=== PATIENT | female | born 1955 | race Caucasian/White ===

== ENCOUNTER → 2018-09-30 | Outpatient (CLI) | payer BC, OTHER ==
--- NOTE | 2018-09-30 15:16 | 2DMMODE ---
[facility] [place] [employer] [place] [address] 2 D/M-MODE ECHOCARDIOGRAM Name: CAROLINA FARLEY Room #: REG [facility]#: [id number] ������������� Admission: 09/30/18 ������������� Attend Phys: Federico Anderson MD Discharge: ��� ������������� ��� Date of : 57 Date of Service: 09/30/18 1515 �� Report #: [id number] �������� ��������������������������������������������[id number] THIS REPORT FOR: //name// APPROVED REPORT Study performed: 09/30/2018 14:21:04 EXAM: Comprehensive 2D, Doppler, and color-flow Echocardiogram Patient Location: Out-Patient Room #: Echo lab 2 Status: routine BSA: 1.97 HR: 58 bpm BP: 138/82 mmHg Rhythm: Bradycardia Other Information Study Quality: Good Indications Diabetes Dyspnea Chest Pain 2D Dimensions RVDd: 38.79 mm IVSd: 10.26 (7-11mm) LVOT Diam: 19.11 (18-24mm) LVDd: 47.00 mm PWd: 10.93 (7-11mm) Ascending Ao: 26.39 (22-36mm) LVDs: 32.34 (25-40mm) Aortic Root: 26.01 mm IVC: 14.00 mm Volumes Left Atrial Volume (Systole) Single Plane 4CH: 59.70 mL Single Plane 2CH: 40.86 mL LA ESV Index: 29.00 mL/m2 Aortic Valve AoV Peak Angelo.: 1.23 m/s AO Peak Gr.: 6.09 mmHg LVOT Max P.90 mmHg LVOT Max V: 1.11 m/s MARY JO Vmax: 2.58 cm2 Mitral Valve E/A Ratio: 1.2 [facility] [address] [place] [address] 2 D/M-MODE ECHOCARDIOGRAM Name: CAROLINA FARLEY Room #: REG [facility]#: [id number] ������������� Admission: 09/30/18 ������������� Attend Phys: Federico Anderson MD Discharge: ��� ������������� ��� Date of : 57 Date of Service: 09/30/18 1515 �� Report #: [id number] �������� ��������������������������������������������[id number] MV Decel. Time: 220.60 ms MV E Max Angelo.: 1.08 m/s MV A Angelo.: 0.90 m/s MV PHT: 63.97 ms IVRT: 115.34 ms Pulmonary Valve PV Peak Angelo.: 1.04 m/s PV Peak Gr.: 4.33 mmHg Pulmonary Vein P Vein S: 0.56 m/s P Vein A: 0.35 m/s P Vein D: 0.38 m/s P Vein A Dur.: 110.7 msec P Vein S/D Ratio: 1.47 Tricuspid Valve TR Peak Angelo.: 2.32 m/s TR Peak Gr.: 21.47 mmHg PA Pressure: 26.00 mmHg Left Ventricle The left ventricle is normal size. There is normal LV segmental wall motion. There is normal left ventricular wall thickness. Left ventricular systolic function is normal. The left ventricular ejection fraction is within the normal range. LVEF is 55-60%. Grade II - pseudonormal filling dynamics. Right Ventricle The right ventricle is normal size. The right ventricular systolic function is normal. Atria The left atrium size is normal. The right atrium size is normal. Aortic Valve The aortic valve is normal in structure. Trace aortic regurgitation. There is no aortic valvular stenosis. Mitral Valve The mitral valve is normal in structure. There is no mitral valve regurgitation noted. No evidence of mitral valve stenosis. Tricuspid Valve The tricuspid valve is normal in structure. There is trace tricuspid regurgitation. Estimated PAP 26 mmHg. There is no pulmonary hypertension. [address] [address] 2 D/M-MODE ECHOCARDIOGRAM Name: CAROLINA FARLEY Room #: REG [facility]#: [id number] ������������� Admission: 09/30/18 ������������� Attend Phys: Federico Anderson MD Discharge: ��� ������������� ��� Date of : 57 Date of Service: 09/30/18 1515 �� Report #: [id number] �������� ��������������������������������������������[id number] Pulmonic Valve The pulmonary valve is normal in structure. There is no pulmonic valvular regurgitation. Great Vessels The aortic root is normal in size. IVC is normal in size and collapses >50% with inspiration. Pericardium There is no pericardial effusion. <Conclusion> The left ventricle is normal size. LVEF is 55-60%. The aortic valve is normal in structure. Trace aortic regurgitation. The mitral valve is normal in structure. The tricuspid valve is normal in structure. There is trace tricuspid regurgitation. Estimated PAP 26 mmHg. There is no pulmonary hypertension. The pulmonary valve is normal in structure. There is no pericardial effusion. ��������������������������������������������� <ELECTRONICALLY SIGNED> ���������������������������������������� By: Mil Waggoner MD ��������������������������������������������� 09/30/18 1515 1515 1515 Mil Waggoner MD /INF
== END ==
LOC: RAD 12:00 → CV 12:03
DX: E11.9 Type 2 diabetes mellitus without complications (principal); K44.9 Diaphragmatic hernia without obstruction or gangrene; R07.9 Chest pain, unspecified

== ENCOUNTER → 2019-04-08 | Outpatient (CLI) | payer BC, OTHER | LOC: RAD 12:01 | DX: M51.16 Intervertebral disc disorders with radiculopathy, lumbar region (principal); D73.89 Other diseases of spleen ==

== ENCOUNTER → 2019-05-14 | Outpatient (CLI) | payer BC, OTHER | LOC: RAD 18:12 | DX: M17.12 Unilateral primary osteoarthritis, left knee (principal); M25.762 Osteophyte, left knee ==

== ENCOUNTER → 2019-06-17 | Outpatient (CLI) | payer BC, OTHER | LOC: RAD 15:59 | DX: J43.9 Emphysema, unspecified (principal); J98.4 Other disorders of lung; K44.9 Diaphragmatic hernia without obstruction or gangrene ==